=== PATIENT | male | born 1965 | race Caucasian/White ===

== ENCOUNTER 2023-07-16 22:32 | Emergency (ER) | payer OTHER, SELFPAY ==
[2023-07-16 22:53] VITALS: BP 138/62; PULSE 72; RESP 16; TEMP 36.4; O2SAT 96; BMI 38.6
--- NOTE | 2023-07-16 23:02 | DI.RAD.S_ITS ---
PROCEDURE: XR CHEST 1V INDICATIONS: chest pain TECHNIQUE: One view of the chest was acquired. COMPARISON: None. FINDINGS: Surgical changes and devices: Median sternotomy wires. Lungs and pleura: Mild diffuse interstitial thickening. Mildly asymmetric left hemidiaphragm elevation. No focal consolidation, effusion, or pneumothorax. Mediastinum: Mild cardiomegaly and median sternotomy changes. No significant central venous congestion. Normal aortic contour. Bones and chest wall: No suspicious bony lesions. Overlying soft tissues appear unremarkable. IMPRESSION: Diffuse interstitial thickening may indicate chronic edema or viral pneumonitis. Mild cardiomegaly with postsurgical changes. Dictated by: Whit Hunt M.D. on 07/16/2023 at 23:51 Approved by: Whit Hunt M.D. on 07/16/2023 at 23:52
[2023-07-16 23:16] LABS: Add Manual Diff / Slide Review NO; Basophils Absolute Auto 0 /uL (0-100); Basophils Percent Auto 0.3 % (0-2); Eosinophils Absolute Auto 100 /uL (0-450); Hematocrit 37.4 % (41-53); Hemoglobin 12.4 g/dL (13.5-17.5); Lymphocytes Absolute Auto 4500 /uL (1100-4500); Lymphocytes Percent Auto 35.9 % (25-40); Mean Corpuscular HGB Conc 33.1 % (30-36); Mean Corpuscular Hemoglobin 30.8 PG (26-34); Mean Corpuscular Volume 93.2 fL (80-100); Monocytes Absolute Auto 800 /uL (0-900); Monocytes Percent Auto 6.4 % (3-14); Neutrophils Absolute Auto 7100 /uL (1500-7000); Neutrophils Percent Auto 56.4 % (50-75); Platelet Count 293 X10^3/uL (150-400); Red Blood Cell Count 4.01 X10^6/uL (4.5-5.9); Red Cell Distribution Width 14.9 % (11.6-14.8); White Blood Cell Count 12.6 X10^3/uL (4.5-11.0)
[2023-07-16 23:19] LABS: INR 1.1 (0.9-1.3); Prothrombin Time 12.3 SECONDS (9.4-12.5)
[2023-07-16 23:21] LABS: PTT Partial Thromboplastin Tim 36 SECONDS (25.1-36.5)
[2023-07-16 23:24] LABS: Alanine Aminotransferase 19 IU/L (<50); Albumin Globulin Ratio 1.4 (1.0-2.8); Alkaline Phosphatase 92 U/L (38-126); Aspartate Aminotransferase 21 IU/L (17-59); BUN Creatinine Ratio 18.9 (6-22); Bilirubin Total 0.4 mg/dL (0.2-1.3); Blood Urea Nitrogen 17 mg/dL (9-20); Calcium 9.3 mg/dL (8.4-10.2); Carbon Dioxide 27 mmol/L (22-32); Chloride 106 mmol/L (98-107); Creatine Kinase 59 U/L (55-170); Estimated Glomerular Filt Rate > 60 mL/min (>60); Globulin 2.9 g/dL (1.7-4.1); Glucose 131 mg/dL (70-100); HEMOLYSIS < 15 (0-50); Lipase 193 U/L (23-300); Magnesium 1.9 mg/dL (1.6-2.3); Sodium 139 mmol/L (137-145); Total Protein 6.9 g/dL (6.3-8.2)
[2023-07-16 23:35] LABS: Troponin I 0.017 ng/mL (0.01-0.034)
--- NOTE | 2023-07-16 23:43 | ED.GENADULT ---
HPI - General Adult General Chief complaint: Syncope Stated complaint: heartrate dropped, almost passed out Time Seen by Provider: 07/16/23 22:48 Source: patient Mode of arrival: Ambulatory History of Present Illness HPI narrative: Patient is a 57-year-old male. One month ago had a coronary artery bypass graft after sustaining a heart attack. He has a follow-up tomorrow morning at 1000 hours with the Cardiothoracic surgeons. He states he was at his normal state of health sitting at home in his recliner watching TV when he states he would fairly sudden episode of feeling lightheaded and feeling like he was going to pass out. No chest pain. No shortness of breath. No palpitations. He states the symptoms lasted only a few short minutes and then resolved. Once he was starting to feel better he took his blood pressure. He states that the systolic blood pressure was in the 120s however the machine read his heart rate in the 40s. He contacted the Cardiothoracic surgeon's office who advised that he come to the emergency department for further evaluation. At the time of my exam he states that he was feeling much better. Was no longer lightheaded. No chest pain, shortness of breath, headache. He has never had symptoms like this in the past. Related Data Home Medications Medication Instructions Recorded Confirmed allopurinol 300 mg tablet 300 mg PO DAILY 07/09/23 07/09/23 alprazolam 0.25 mg tablet 0.25 mg PO TID 07/09/23 07/09/23 amiodarone 200 mg tablet 200 mg PO BID 07/09/23 07/09/23 aspirin 81 mg tablet,delayed 81 mg PO DAILY 07/09/23 07/09/23 release (Adult Low Dose Aspirin) atorvastatin 80 mg tablet 80 mg PO DAILY 07/09/23 07/09/23 citalopram 20 mg tablet 20 mg PO DAILY 07/09/23 07/09/23 clopidogrel 75 mg tablet 75 mg PO DAILY 07/09/23 07/09/23 insulin lispro 100 unit/mL 15 unit SUBCUT TIDWMEAL 07/09/23 07/09/23 subcutaneous half-unit pen (Humalog Porfirio KwikPen (U-100)) lisinopril 10 mg tablet 10 mg PO DAILY 07/09/23 07/09/23 metoprolol succinate 100 mg 100 mg PO DAILY 07/09/23 07/09/23 capsule sprinkle, ext. release 24 hr pantoprazole 40 mg tablet,delayed 40 mg PO DAILY 07/09/23 07/09/23 release Previous Rx's Medication Instructions Recorded insulin glargine-yfgn 100 unit/mL 20 unit (0.2 mL) SUBCUT DAILY #45 07/09/23 (3 mL) subcutaneous pen (Semglee mL (insulin glargine-yfgn) Pen) amiodarone 200 mg tablet 200 mg PO DAILY #30 tabs 07/17/23 Allergies Allergy/AdvReac Type Severity Reaction Status Date / Time No Known Drug Allergies Allergy Verified 07/09/23 07:59 Review of Systems Review of Systems ROS Unobtainable: All systems reviewed & are unremarkable except as noted in HPI and below Patient History Medical History Hyperlipidemia Benign essential HTN CAD (coronary artery disease) Type 2 diabetes mellitus without complication, with long-term current use of insulin Social History Smoking Status: Former smoker Smoking Status: Former smoker Substance Use Type: does not use Exam Initial Vital Signs Initial Vital Signs: Vital Signs Temperature 97.5 F L 07/16/23 22:53 Pulse Rate 72 07/16/23 22:53 Respiratory Rate 16 07/16/23 22:53 Blood Pressure 138/62 07/16/23 22:53 Pulse Oximetry 96 07/16/23 22:53 Oxygen Delivery Method Room Air 07/16/23 22:53 Const General: cooperative, comfortable and No ill appearing [facility] Head: normal to inspection and normocephalic Resp Effort & Inspection: normal respiratory effort Auscultation: clear to auscultation bilaterally Cardio Rate: regular rate Rhythm: regular rhythm GI Inspection: normal to inspection and non-distended Skin General: no rashes or lesions noted Neuro General: patient alert, patient awake, patient oriented x3 and moves all extremities Extrem General: normal to inspection Course Orders Ordered: ED Orders 07/16/23 22:48 EKG-12 Lead Stat 07/16/23 22:57 Complete Blood Count AUTO DIFF Stat Comprehensive Metabolic Panel Stat Lipase Stat Magnesium Stat PTT Partial Thromboplastin Rodrigo Stat Prothrombin Time INR Stat Troponin & CK Cardiac Panel Stat 07/16/23 23:02 XR chest 1V Stat EKG-12 Lead Stat Discontinued Medications Amiodarone HCl (Amiodarone 200 Mg Tablet) 200 mg PO NOW ONE Stop: 07/17/23 00:05 Vital Signs Vital signs: Vital Signs - 8 hr 07/16/23 22:53 Temperature 97.5 F L Pulse Rate 72 Respiratory Rate 16 Blood Pressure 138/62 Pulse Oximetry 96 Oxygen Delivery Method Room Air Medical Decision Making Medical Records Medical records reviewed: Yes I reviewed the patient's medical records. Lab Data Lab results reviewed: Yes I reviewed the patient's lab results. 07/16/23 22:57 07/16/23 22:57 Labs: Lab Results 07/16/23 Range/Units 22:57 WBC 12.6 H (4.5-11.0) X10^3/uL RBC 4.01 L (4.5-5.9) X10^6/uL Hgb 12.4 L (13.5-17.5) g/dL Hct 37.4 L (41-53) % MCV 93.2 (80-100) fL MCH 30.8 (26-34) PG MCHC 33.1 (30-36) % RDW 14.9 H (11.6-14.8) % Plt Count 293 (150-400) X10^3/uL Neut % (Auto) 56.4 (50-75) % Lymph % (Auto) 35.9 (25-40) % Monroe % (Auto) 6.4 (3-14) % Eos % (Auto) 1.0 L (2-4) % Baso % (Auto) 0.3 (0-2) % Neut # (Auto) 7100 H (5540-3427) /uL Lymph # (Auto) 4500 (2198-6810) /uL Monroe # (Auto) 800 (0-900) /uL Eos # (Auto) 100 (0-450) /uL Baso # (Auto) 0 (0-100) /uL PT 12.3 (9.4-12.5) SECONDS INR 1.1 (0.9-1.3) APTT 36 (25.1-36.5) SECONDS Sodium 139 (137-145) mmol/L Potassium 4.0 (3.4-5.1) mmol/L Chloride 106 (98-107) mmol/L Carbon Dioxide 27 (22-32) mmol/L BUN 17 (9-20) mg/dL Creatinine 0.90 (0.66-1.25) mg/dL Estimated GFR > 60 (>60) mL/min BUN/Creatinine Ratio 18.9 (6-22) Glucose 131 H (70-100) mg/dL Calcium 9.3 (8.4-10.2) mg/dL Magnesium 1.9 (1.6-2.3) mg/dL Total Bilirubin 0.4 (0.2-1.3) mg/dL AST 21 (17-59) IU/L ALT 19 (<50) IU/L Alkaline Phosphatase 92 (38-126) U/L Total Creatine Kinase 59 (55-170) U/L Troponin I 0.017 (0.01-0.034) ng/mL Total Protein 6.9 (6.3-8.2) g/dL Albumin 4.0 (3.5-5.0) g/dL Globulin 2.9 (1.7-4.1) g/dL Albumin/Globulin Ratio 1.4 (1.0-2.8) Lipase 193 (23-300) U/L Imaging Data Chest x-ray: Radiologist's Impression: PROCEDURE: XR CHEST 1V INDICATIONS: chest pain TECHNIQUE: One view of the chest was acquired. COMPARISON: None. FINDINGS: Surgical changes and devices: Median sternotomy wires. Lungs and pleura: Mild diffuse interstitial thickening. Mildly asymmetric left hemidiaphragm elevation. No focal consolidation, effusion, or pneumothorax. Mediastinum: Mild cardiomegaly and median sternotomy changes. No significant central venous congestion. Normal aortic contour. Bones and chest wall: No suspicious bony lesions. Overlying soft tissues appear unremarkable. IMPRESSION: Diffuse interstitial thickening may indicate chronic edema or viral pneumonitis. Mild cardiomegaly with postsurgical changes. ECG Data Attestation: I personally reviewed and interpreted this ECG as follows: Interpretation: Frequent PVCs in a bigeminy pattern Nonspecific ST T wave changes MDM Narrative Medical decision making narrative: Since being here in the emergency department patient is asymptomatic. He was having frequent PVCs in a bigeminy pattern. His labs are unremarkable. Upon further discussion he states that yesterday was his last dose of amiodarone. He was only supposed to take it for 32 doses after his surgery. He was on metoprolol. I discuss the case with Dr. Smith on-call dairy feed sales consultant who recommended that the patient start back on his amiodarone. He was given a dose here in the ER and a prescription was sent to the pharmacy of his choice. Cardiology also recommended the patient contact his primary doctor's office for a Holter monitor. I did discuss this with the patient. Will have him keep his appointment with his Cardiothoracic surgeon in a couple hours. He was given return precautions and follow-up instructions. He expressed understanding and agreement with plan. Discharge Plan Departure Patient Disposition: Home Clinical Impression: Drake, Pre-syncope Instructions: DI for Arrhythmias Activity Restrictions/Additional Instructions: I recommend that you continue to take all of your medications as directed. Keep your scheduled follow-up appointment later this morning with the Cardiothoracic surgeon. We are going to put you back on amiodarone. A prescription was sent to [facility]. Please take it as directed. Return to the emergency department for new or worsening symptoms. Prescriptions: New amiodarone 200 mg tablet 200 mg PO DAILY Qty: 30 2RF No Action allopurinol 300 mg tablet 300 mg PO DAILY amiodarone 200 mg tablet 200 mg PO BID aspirin [Adult Low Dose Aspirin] 81 mg tablet,delayed release (DR/EC) 81 mg PO DAILY atorvastatin 80 mg tablet 80 mg PO DAILY citalopram 20 mg tablet 20 mg PO DAILY clopidogrel 75 mg tablet 75 mg PO DAILY lisinopril 10 mg tablet 10 mg PO DAILY metoprolol succinate 100 mg capsule,sprinkle,ER 24hr 100 mg PO DAILY pantoprazole 40 mg tablet,delayed release (DR/EC) 40 mg PO DAILY alprazolam 0.25 mg tablet 0.25 mg PO TID insulin glargine-yfgn [Semglee(insulin glarg-yfgn)Pen] 100 unit/mL (3 mL) insulin pen 20 unit SUBCUT DAILY Qty: 45 0RF insulin lispro [Humalog Porfirio KwikPen U-100] 100 unit/mL insulin pen, half-unit 15 unit SUBCUT TIDWMEAL Referrals: Amanda Padgett DO [Primary Care Provider] - Stand Alone Forms: Patient Portal/API
[2023-07-17] MEDS: AMIODARONE 200 MG TABLET PO (00:23)
[2023-07-17 00:28] VITALS: BP 135/61; PULSE 77; RESP 18; O2SAT 97
== END 2023-07-17 00:44 | disposition home or self-care (01) ==
PROVIDERS: Emergency Provider Emergency Medicine; PCP Family Medicine
DX: R00.8 Other abnormalities of heart beat (principal); R55 Syncope and collapse
CPT/HCPCS: 36415; 71045; 80053; 82550; 83690; 83735; 84484; 85025; 85610; 85730; 93005; 99284

== ENCOUNTER → 2023-08-18 10:47 | Outpatient (CLI) | payer OTHER, SELFPAY ==
[2023-08-18 11:59] LABS: Hemoglobin A1C% w Est Avg Glu 6.6 % (4.0-6.0)
== END ==
PROVIDERS: PCP Family Medicine; Referring Provider Family Medicine; Visit Provider Family Medicine
DX: E11.9 Type 2 diabetes mellitus without complications (principal); Z79.4 Long term (current) use of insulin
CPT/HCPCS: 36415; 83036

== ENCOUNTER → 2023-09-29 14:01 | Outpatient (CLI) | payer OTHER, SELFPAY ==
[2023-09-29 14:45] LABS: Add Manual Diff / Slide Review NO; Basophils Absolute Auto 0 /uL (0-100); Basophils Percent Auto 0.2 % (0-2); Eosinophils Absolute Auto 200 /uL (0-450); Eosinophils Percent Auto 1.5 % (2-4); Hematocrit 40.8 % (41-53); Hemoglobin 13.6 g/dL (13.5-17.5); Lymphocytes Absolute Auto 4200 /uL (1100-4500); Lymphocytes Percent Auto 31.8 % (25-40); Mean Corpuscular HGB Conc 33.4 % (30-36); Mean Corpuscular Hemoglobin 30.4 PG (26-34); Mean Corpuscular Volume 90.9 fL (80-100); Monocytes Absolute Auto 700 /uL (0-900); Monocytes Percent Auto 5.6 % (3-14); Neutrophils Absolute Auto 8000 /uL (1500-7000); Neutrophils Percent Auto 60.9 % (50-75); Platelet Count 292 X10^3/uL (150-400); Red Blood Cell Count 4.48 X10^6/uL (4.5-5.9); Red Cell Distribution Width 15.5 % (11.6-14.8); White Blood Cell Count 13.1 X10^3/uL (4.5-11.0)
[2023-09-29 15:06] LABS: Alanine Aminotransferase 19 IU/L (<50); Albumin 4.4 g/dL (3.5-5.0); Albumin Globulin Ratio 1.6 (1.0-2.8); Alkaline Phosphatase 122 U/L (38-126); Aspartate Aminotransferase 21 IU/L (17-59); BUN Creatinine Ratio 17.5 (6-22); Bilirubin Total 0.4 mg/dL (0.2-1.3); Blood Urea Nitrogen 17 mg/dL (9-20); Calcium 9.8 mg/dL (8.4-10.2); Carbon Dioxide 29 mmol/L (22-32); Chloride 101 mmol/L (98-107); Cholesterol 144 mg/dL (140-199); Estimated Glomerular Filt Rate > 60 mL/min (>60); Globulin 2.7 g/dL (1.7-4.1); Glucose 143 mg/dL (70-100); HDL Cholesterol 38 mg/dL (40-60); HEMOLYSIS < 15 (0-50); LDL Cholesterol Calculated 62 mg/dL (<100); Magnesium 1.9 mg/dL (1.6-2.3); Potassium 4.5 mmol/L (3.4-5.1); Sodium 137 mmol/L (137-145); Total Protein 7.1 g/dL (6.3-8.2); Triglycerides 222 mg/dL (35-150)
[2023-09-29 15:33] LABS: TSH w/ Reflex to FT4 1.14 uIU/mL (0.47-4.68)
== END ==
LOC: LAB 14:02
PROVIDERS: PCP Family Medicine; Referring Provider Physician Assistant Surgical; Visit Provider Physician Assistant Surgical
DX: Z95.1 Presence of aortocoronary bypass graft (principal); E78.5 Hyperlipidemia, unspecified; R00.2 Palpitations
CPT/HCPCS: 36415; 80053; 80061; 83735; 84443; 85025

== ENCOUNTER → 2023-11-10 10:54 | Outpatient (CLI) | payer OTHER, SELFPAY ==
[2023-11-10 14:32] LABS: Uric Acid 6.5 mg/dL (3.5-8.5)
[2023-11-10 15:09] LABS: Hemoglobin A1C% w Est Avg Glu 6.9 % (4.0-6.0)
[2023-11-10 18:54] LABS: HIV 1 & 2 Ab/Ag 4th Gen Combo NEGATIVE (NEGATIVE); Hep C Virus Ab w/Reflex Quant NEGATIVE s/c (NEGATIVE)
== END ==
PROVIDERS: PCP Family Medicine; Referring Provider Family Medicine; Visit Provider Family Medicine
DX: E11.9 Type 2 diabetes mellitus without complications (principal); Z79.4 Long term (current) use of insulin; I25.10 Atherosclerotic heart disease of native coronary artery without angina pectoris; M10.9 Gout, unspecified; Z11.59 Encounter for screening for other viral diseases; Z11.4 Encounter for screening for human immunodeficiency virus [HIV]
CPT/HCPCS: 36415; 83036; 84550; 86803; 87389

== ENCOUNTER → 2024-06-07 16:38 | Outpatient (CLI) | payer OTHER, SELFPAY ==
[2024-06-07 18:20] LABS: Hemoglobin A1C% w Est Avg Glu 6.1 % (4.0-6.0)
[2024-06-07 18:50] LABS: Prostate Specific Antigen Scrn 0.323 ng/mL (0.1-4.0)
== END ==
PROVIDERS: PCP Family Medicine; Referring Provider Family Medicine; Visit Provider Family Medicine
DX: E11.9 Type 2 diabetes mellitus without complications (principal); Z79.4 Long term (current) use of insulin; Z12.5 Encounter for screening for malignant neoplasm of prostate
CPT/HCPCS: 36415; 83036; G0103